=== PATIENT | female | born 1980 | race Caucasian/White ===

== ENCOUNTER 2017-06-18 15:36 | Emergency (ER) | payer BC, OTHER ==
[~2017-06-18] VITALS: Ht 182.9 cm; Wt 81.7 kg
[2017-06-18] MEDS ORDERED: HYDROCODONE-AP1 EAC6 PO (17:36)
[2017-06-18 18:10] VITALS: BP 127/76
== END 2017-06-18 18:10 | disposition home or self-care (01) ==
LOC: ER 15:36
DX: S80.11XA Contusion of right lower leg, initial encounter (principal); I82.401 Acute embolism and thrombosis of unspecified deep veins of right lower extremity; L40.9 Psoriasis, unspecified; F17.210 Nicotine dependence, cigarettes, uncomplicated; F10.99 Alcohol use, unspecified with unspecified alcohol-induced disorder; W18.30XA Fall on same level, unspecified, initial encounter; Y93.89 Activity, other specified; Y92.89 Other specified places as the place of occurrence of the external cause; Y99.0 Civilian activity done for income or pay